=== PATIENT | female | born 1965 | race Caucasian/White ===

== ENCOUNTER 2018-10-19 09:19 | Emergency (ER) | payer OTHER ==
[~2018-10-19] VITALS: Ht 165.1 cm; Wt 54.4 kg
[~2018-10-19 09:19] MED LIST: AMOX500 PO; CITA20; CITA20 PO; CYCL10 PO; DIPH25 PO; METPRE4DP PO; OXYACE5T PO; PROM25 PO; RXDIPHSY PO; SULTRIDS PO; TRAM50 PO
[2018-10-19] MEDS ORDERED: CLOP75 PO (09:45)
[2018-10-19] MEDS ORDERED: ARIP15 PO (09:45)
[2018-10-19] MEDS ORDERED: STATIN (09:46)
[2018-10-19] MEDS ORDERED: HYDR1TAB94 PO (10:36)
[2018-10-19] MEDS ORDERED: CYCL10 PO (10:36)
== END 2018-10-19 10:42 | disposition home or self-care (01) ==
LOC: ER 09:19
DX: S20.212A Contusion of left front wall of thorax, initial encounter (principal); X58.XXXA Exposure to other specified factors, initial encounter; Z88.8 Allergy status to other drugs, medicaments and biological substances; Z88.1 Allergy status to other antibiotic agents; Z79.899 Other long term (current) drug therapy; J44.9 Chronic obstructive pulmonary disease, unspecified; Z87.891 Personal history of nicotine dependence
CPT/HCPCS: 71101; 99283-25

== ENCOUNTER 2018-11-04 12:49 | Emergency (ER) | payer OTHER ==
[~2018-11-04] VITALS: Ht 165.1 cm; Wt 54.4 kg
[~2018-11-04 12:49] MED LIST changes: +ARIP15 PO; +CLOP75 PO; +HYDR1TAB94 PO; +STATIN
[2018-11-04 14:54] LABS: Source, Urine Clean Catch
[2018-11-04 14:59] LABS: Bilirubin, Urine Neg (Neg); Blood, Urine 3+ (Neg); Glucose Qualitative, Urine Neg (Neg); Ketones, Urine Neg (Neg); Leukocyte Esterase, Urine Neg (Neg); Nitrite, Urine Neg (Neg); Protein, Urine Neg (Neg); Specific Gravity, Urine 1.015 (1.003-1.022); Urobilinogen, Urine NORM (Normal)
[2018-11-04] MEDS ORDERED: CYCL10 PO (15:02)
[2018-11-04] MEDS ORDERED: PRED10 PO (15:02)
[2018-11-04] MEDS ORDERED: Ultram50 MG PO (15:02)
[2018-11-04 15:13] LABS: Appearance, Urine Clear (Clear); Color, Urine Yellow (P-Yellow)
[2018-11-04 15:14] LABS: White Blood Cells, Urine Rare /hpf (0-5)
[2018-11-04 15:15] LABS: Bacteria Rare /hpf; Squamous Epithelial Cells Rare /hpf (Few)
== END 2018-11-04 15:29 | disposition home or self-care (01) ==
LOC: ER 12:49
PROVIDERS: Physician Assistant
DX: M54.16 Radiculopathy, lumbar region (principal); R31.9 Hematuria, unspecified; Z88.5 Allergy status to narcotic agent; Z88.8 Allergy status to other drugs, medicaments and biological substances; Z88.1 Allergy status to other antibiotic agents; Z79.899 Other long term (current) drug therapy; Z87.891 Personal history of nicotine dependence
CPT/HCPCS: 81001; 93926; 99284-25

== ENCOUNTER → 2024-08-30 | Outpatient (CLI) | payer OTHER ==
[~2024-08-30] MED LIST changes: +ATOR40TA; +Colace100 MG PO; +LOSA25 PO; +PRED10 PO; +Ultram50 MG PO
== END ==
LOC: LAB SHORT 08:14 → LAB 08:14
DX: B35.1 Tinea unguium (principal); L60.2 Onychogryphosis
CPT/HCPCS: 88305; 88312